=== PATIENT | female | born 1965 | race Caucasian/White ===

== ENCOUNTER 2016-09-17 01:27 | Emergency (ER) | payer OTHER ==
[~2016-09-17] VITALS: Ht 177.8 cm; Wt 70.0 kg
[2016-09-17] MEDS ORDERED: LORazepam 2 MG/ML VIAL ONE ×2 (01:33→01:52)
[2016-09-17] MEDS ORDERED: DIPHTH/TETANUS/ACEL PERTUSSIS (BOOSTER) 0.5 ML VIAL/PFS IM ONE (01:49)
[2016-09-17] MEDS ORDERED: ceFAZolin 2 GM PREMIX 50 ML IV STA (01:49)
[2016-09-17 01:50] LABS: AUTOMATED NEUTROPHIL # 13.6 TH/MM3 (1.8-7.7); BASOPHIL # 0.1 TH/MM3 (0-0.2); BASOPHIL % 0.4 % (0.0-2.0); EOSINOPHIL # 0.1 TH/MM3 (0-0.4); EOSINOPHIL % 0.5 % (0.0-4.0); HEMATOCRIT 40.3 % (35.0-46.0); HEMO FLAGS DIFF FINAL; I-STAT POTASSIUM 3.4 MMOL/L (3.5-4.9); LYMPH % 22.9 % (9.0-44.0); LYMPHOCYTE # 4.4 TH/MM3 (1.0-4.8); MEAN CELL VOLUME 88.3 FL (80.0-100.0); MEAN CORPUSCULAR HEMOGLOBIN 29.2 PG (27.0-34.0); MEAN CORPUSCULAR HGB CONC 33.1 % (32.0-36.0); MONO % 6.1 % (0.0-8.0); NEUT % 70.1 % (16.0-70.0); PLATELET COUNT 271 TH/MM3 (150-450); RED BLOOD COUNT 4.56 MIL/MM3 (4.00-5.30); RED CELL DISTRIBUTION WIDTH 14.5 % (11.6-17.2); WHITE BLOOD COUNT 19.3 TH/MM3 (4.0-11.0)
[2016-09-17 01:57] LABS: APTT (PATIENT) 25.8 SEC (24.3-30.1); PROTHROMBIN TIME - PATIENT 11.1 SEC (9.8-11.6)
[2016-09-17] MEDS ORDERED: LORazepam 2 MG/ML VIAL IV PUSH ONE (02:00)
[2016-09-17] MEDS ORDERED: SODIUM CHLOR 0.9% 1000 ML INJ 1,000 ML IV ONE (02:00)
[2016-09-17] MEDS ORDERED: IOHEXOL 350 MG/ML 10 ML VIAL (for RAD DIAG) IV ONE (02:02)
[2016-09-17 02:08] VITALS: O2SAT 97
[2016-09-17 02:14] VITALS: BP 128/82; PULSE 88; RESP 16; O2SAT 95
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
[2016-09-17 04:08] VITALS: BP 130/84; PULSE 88; RESP 18; O2SAT 97
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
== END 2016-09-17 06:02 | disposition short-term general hospital (02) ==
LOC: NEPE 01:27 → EDBD 01:27 → NEPE 06:02
DX: M47.9 Spondylosis, unspecified (principal); S02.609A Fracture of mandible, unspecified, initial encounter for closed fracture; S02.2XXA Fracture of nasal bones, initial encounter for closed fracture; S02.81XA Fracture of other specified skull and facial bones, right side, initial encounter for closed fracture; S02.40FA Zygomatic fracture, left side, initial encounter for closed fracture; S02.19XA Other fracture of base of skull, initial encounter for closed fracture; S02.82XA Fracture of other specified skull and facial bones, left side, initial encounter for closed fracture; J44.9 Chronic obstructive pulmonary disease, unspecified; V47.5XXA Car driver injured in collision with fixed or stationary object in traffic accident, initial encounter
CPT/HCPCS: 70450; 70486; 71010; 71260; 72125; 72170; 73590; 74177; 80307; 82435; 82565; 82947; 84132; 84295; 84520; 85025; 85610; 85730; 86850; 86900; 86901; 90471; 96365; 96375; 96376; 99291; J0690; J2060; J7030; Q9967; G0390